=== PATIENT | male | born 1990 | race Caucasian/White ===

== ENCOUNTER 2022-06-23 20:22 | Emergency (ER) | payer SELFPAY ==
[2022-06-23 20:44] VITALS: BP 154/102; PULSE 107; RESP 18; TEMP 36.9; O2SAT 95
--- NOTE | 2022-06-23 21:08 | ED_ITS ---
HPI - Wound/Laceration General Time Seen by Provider: 21:09 Date Seen: 06/23/22 Chief Complaint: Laceration/Wound Stated Complaint: Right Hand Lac Time Seen by Provider: 06/23/22 20:54 Source: patient, RN notes reviewed and delivery merchandiser Mode of arrival: ambulatory Limitations: no limitations History of Present Illness HPI narrative: Patient is a 31-year-old male that cut his hand earlier today around noon. He states it did not bleed a lot as a bandaged it right away. Cut it on a piece of metal. He believes his tetanus to be up to date, last done about 4-5 years ago. Nothing else was injured. Wound a is roughly 9 hours old. He is not having any pain. No fever. Onset (ago): hour(s) Location: other ( Right hand) Patient tetanus UTD: Yes Context: accidental Related Data Home Medications Medication Instructions Recorded Confirmed No Known Home Medications 06/23/22 06/23/22 Allergies Allergy/AdvReac Type Severity Reaction Status Date / Time No Known Drug Allergies Allergy Verified 06/23/22 20:46 Review of Systems Narrative: as per HPI PFSH PFSH Surgical History (Updated 06/23/22 @ 20:58 by Robby Calle RN) Hx of appendectomy Social History Smoking Status: Former smoker What tobacco products do you use: cigarettes Smoking quit date/years: <= 15 years ago How often do you have a drink containing alcohol: never AUDIT-C Alcohol total score: 0 Non-prescribed substance use: denies use Exam Const: Vital Signs, click to edit/add: Vital Signs - 24 hr 06/23/22 20:44 Temperature 98.4 F Pulse Rate [Pulse Oximeter] 107 H Respiratory Rate 18 Blood Pressure [Ri ght Upper Arm] 154/102 H Pulse Oximetry 95 Oxygen Delivery Me thod Room Air Documenting provider has reviewed patient's vital signs: yes Common normals: no apparent distress, healthy appearing and alert Extremity: Other: on the palm of his hand, has about a 1.5 cm semicircular laceration into the epidermis. Wound edges do gape, no active bleeding at this time. It is not going deeper into the muscle or any structures below. Laceration is overlying the thenar eminence. Neurovascular is intact, full range of motion of his fingers. Again this wound is not deep. Neuro: Sensorium/orientation: alert Course Course Hospital Course: Reviewed with patient via the delivery merchandiser that I felt the wound would benefit from some sutures in 18 this from healing quicker and stopping the wound from being opened and aggravated, rebleeding. Patient agrees with laceration repair with sutures. Vital Signs Vital signs: Initial Vital Signs Temperature 98.4 F 06/23/22 20:44 Temperature Source Temporal Artery Scan 06/23/22 20:44 Pulse Rate 107 H 06/23/22 20:44 Respiratory Rate 18 06/23/22 20:44 Blood Pressure 154/102 H 06/23/22 20:44 Blood Pressure Mean 119 06/23/22 20:44 Blood Pressure Position Sitting 06/23/22 20:44 Pulse Oximetry 95 06/23/22 20:44 Oxygen Delivery Method 06/23/22 20:44 Vital Signs Temperature 98.4 F 06/23/22 20:44 Pulse Rate 107 H 06/23/22 20:44 Respiratory Rate 18 06/23/22 20:44 Blood Pressure 154/102 H 06/23/22 20:44 Pulse Oximetry 95 06/23/22 20:44 Oxygen Delivery Method 06/23/22 20:44 Temperature 98.4 F 06/23/22 20:44 Pulse Rate 107 H 06/23/22 20:44 Respiratory Rate 18 06/23/22 20:44 Blood Pressure 154/102 H 06/23/22 20:44 Pulse Oximetry 95 06/23/22 20:44 Oxygen Delivery Method 06/23/22 20:44 Critical Care Time Critical Care Time Critical Care Time: No Discharge Plan Discharge Clinical Impression: Laceration of hand Instructions: Care For Your Stitches (ED), Laceration (ED) Additional Instructions: Should keep your wound covered with bandages while working. May shower and wash hands as you would normally. Need to have a clinic followup in 7-10 days to assess the wound for suture removal. If there is any concern for infection, please seek re-evaluation. Activity Level: Activity as Tolerated Prescriptions: No Action No Known Home Medications Stand Alone Forms: MyHealth Info Instructions Procedures Laceration Laceration 1: Pre procedure diagnosis: Hand laceration, right Post procedure diagnosis: same Site marking: not applicable Verification/time out: correct patient, correct site and correct procedure Name of person performing procedure: Brigette Charles Site: hand Side (If applicable): right Size (cm): 1.5 Description: linear Depth: simple, single layer Local Anesthetic: lidocaine 1% Amount of anesthesia used (mL): 5 ( 5 mL drawn up, about 3.5 used locally around the wound) Pre-repair: wound explored, irrigated extensively and deep structures intact Skin layer closed with: other (Ethilon) Size (cm): 4-0 Number of sutures: 5 Technique: simple, interrupted Wound cleansing: sterile water Estimated blood loss (if any): none Conclusion: patient tolerated procedure
== END 2022-06-23 21:52 | disposition home or self-care (01) ==
LOC: ED 21:33
PROVIDERS: Emergency Provider Family Medicine
DX: S61.411A Laceration without foreign body of right hand, initial encounter (principal); W26.8XXA Contact with other sharp object(s), not elsewhere classified, initial encounter; Y93.9 Activity, unspecified; Y92.9 Unspecified place or not applicable; Y99.9 Unspecified external cause status
CPT/HCPCS: 12001; 99282; 99283